=== PATIENT | male | born 1950 | race Caucasian/White ===

== ENCOUNTER 2024-01-21 22:13 | Emergency (ER) | payer MEDICARE, OTHER, MEDICAID ==
[~2024-01-21] VITALS: Ht 167.6 cm; Wt 61.2 kg
[2024-01-21] MEDS ORDERED: BACLOFEN (10 MG) 10 MG TABLET ONE (23:57)
[2024-01-21] MEDS: BACLOFEN (10 MG) 10 MG TABLET PO ONE (23:59)
[2024-01-22 01:17] VITALS: BP 119/78; TEMP 98.5; O2SAT 98
== END 2024-01-22 01:00 ==
LOC: ER 22:27
DX: G25.0 Essential tremor (principal); G30.9 Alzheimer's disease, unspecified; F02.80 Dementia in other diseases classified elsewhere, unspecified severity, without behavioral disturbance, psychotic disturbance, mood disturbance, and anxiety

== ENCOUNTER 2024-06-17 03:26 | Inpatient (IN) | payer MEDICARE, OTHER ==
[~2024-06-17] VITALS: Ht 170.2 cm; Wt 63.0 kg
[2024-06-17] MEDS ORDERED: LORAZEPAM INJ 2 MG/ML VIAL ONE (03:59)
[2024-06-17] MEDS: LORAZEPAM INJ 2 MG/ML VIAL IM ONE (04:06)
[2024-06-17 06:04] LABS: BASOPHILS % (AUTO) 0.3 % (0.0-2.0); EOSINOPHILS # (AUTO) 0.1 K/uL (0.0-0.7); EOSINOPHILS % (AUTO) 0.8 % (0.0-6.0); HEMATOCRIT 33 % (39-51); HEMOGLOBIN 11.2 g/dL (13.5-17.5); LYMPHOCYTES # (AUTO) 1.1 K/uL (0.8-4.8); LYMPHOCYTES % (AUTO) 11.5 % (20.0-44.0); MEAN CORPUSCULAR HEMOGLOBIN 31 PG (26.0-33.0); MEAN CORPUSCULAR HGB CONC 34 g/dl (31.0-36.0); MEAN CORPUSCULAR VOLUME 91 fL (80-96); MONOCYTES # (AUTO) 0.6 K/uL (0.1-1.30); MONOCYTES % (AUTO) 6.3 % (2.0-12.0); NEUTROPHILS # (AUTO) 7.5 K/uL (1.8-8.9); NEUTROPHILS % (AUTO) 81.1 % (43.0-81.0); PLATELET COUNT (AUTO) 208 K/uL (150-450); RED BLOOD CELL COUNT(AUTO) 3.65 MIL/uL (4.5-6.0); RED CELL DISTRIBUTION WIDTH 13.4 % (11.5-15.0); WHITE BLOOD COUNT (AUTO) 9.2 K/uL (4.3-11.0)
[2024-06-17 06:14] LABS: CALCIUM, SERUM 8.7 mg/dL (8.5-10.1); CARBON DIOXIDE 36 mmol/L (21-32); CHLORIDE 105 mmol/L (98-107); CREATININE 1.2 mg/dL (0.6-1.3); GLUCOSE 112 mg/dL (74-106); POTASSIUM 4.3 mmol/L (3.5-5.1); SODIUM SERUM 141 mmol/L (136-145); UREA NITROGEN, BLOOD 19 mg/dL (7-18)
[2024-06-17 06:15] LABS: INR 1.01 (0.91-1.10); PARTIAL THROMBOPLASTIN TIME 27.2 SEC (24.3-34.3); PROTHROMBIN TIME 10.7 SECS (9.2-11.1)
[2024-06-17] MEDS ORDERED: GLUTAMINE PO (07:33)
[2024-06-17] MEDS ORDERED: MULT-225 PO (07:33)
[2024-06-17] MEDS ORDERED: MELA3TAB41 PO (07:33)
[2024-06-17] MEDS ORDERED: CYAN-51 PO (07:33)
[2024-06-17] MEDS ORDERED: OMEG100037 PO (07:33)
[2024-06-17] MEDS ORDERED: BENZ0.5T43 PO (07:33)
[2024-06-17] MEDS ORDERED: AMLO5TAB4 PO (07:33)
[2024-06-17] MEDS ORDERED: PSYL283P40 PO (07:33)
[2024-06-17] MEDS ORDERED: DIVA125T32 PO (07:33)
[2024-06-17] MEDS ORDERED: ACET-868 PO (07:33)
[2024-06-17] MEDS ORDERED: DIME118C TP (07:33)
[2024-06-17] MEDS ORDERED: ACET-2030 PO (07:33)
[2024-06-17] MEDS ORDERED: DOCU250C14 PO (07:33)
[2024-06-17] MEDS ORDERED: LACT20SO4 PO (07:33)
[2024-06-17] MEDS ORDERED: LATA7.5D EACHEYE (07:33)
[2024-06-17] MEDS ORDERED: ASCO-352 PO (07:33)
[2024-06-17] MEDS ORDERED: RISP0.5T5 PO (07:33)
[2024-06-17] MEDS ORDERED: BISA10SU11 RC (07:33)
[2024-06-17] MEDS ORDERED: RISP1TAB7 PO (07:33)
[2024-06-17] MEDS ORDERED: IVER3TAB2 PO (07:33)
[2024-06-17] MEDS ORDERED: EPIN0.3A4 IM (07:33)
[2024-06-17] MEDS ORDERED: MULT-479 GT (07:33)
[2024-06-17] MEDS ORDERED: MAG HYDROX/AL HYDROX/SIMETH 30 ML UDC PO PRN (08:30)
[2024-06-17] MEDS ORDERED: ONDANSETRON HCL/PF 4 MG/2 ML VIAL IVP PRN (08:30)
[2024-06-17] MEDS ORDERED: MAGNESIUM HYDROXIDE 30 ML UDC PO PRN (08:30)
[2024-06-17] MEDS ORDERED: Z GUARD REMEDY 4 OZ OINT TP PRN (08:30)
[2024-06-17] MEDS ORDERED: ZOLPIDEM TARTRATE 5 MG TABLET PO PRN (08:30)
[2024-06-17] MEDS ORDERED: ACETAMINOPHEN 325 MG TABLET PO PRN ×2 (08:30→17:30)
[2024-06-17] MEDS ORDERED: LACTULOSE 10 G/15 ML UDC (PYXIS) PO PRN (09:00)
[2024-06-17] MEDS ORDERED: DIVALPROEX SODIUM 125 MG TABLET.DR PO SCH (09:00)
[2024-06-17] MEDS: risperiDONE 1 MG TABLET PO SCH (10:01)
[2024-06-17] MEDS: BENZTROPINE MESYLATE (1 MG) 1 MG TABLET PO SCH (10:02)
[2024-06-17] MEDS: ENOXAPARIN SODIUM 40 MG/0.4 ML DISP.SYRIN SQ SCH (10:03)
[2024-06-17] MEDS: IV NS 0.9% 1,000 ML IV PRN (10:54)
[2024-06-17] MEDS ORDERED: BISACODYL SUPP (10 MG) 10 MG/SUPP.RECT SUPP.RECT RC PRN (17:30)
[2024-06-17] MEDS ORDERED: ACETAMINOPHEN ES 500 MG TABLET PO PRN (17:30)
[2024-06-17 20:00] VITALS: BP 111/85; TEMP 97.7; O2SAT 95
[2024-06-17] MEDS: risperiDONE 0.25 MG TABLET PO SCH (21:47)
[2024-06-17] MEDS: LATANOPROST EYE DROP 0.005% 2.5 ML BOTTLE EACHEYE SCH (21:56)
[2024-06-18 06:40] LABS: BASOPHILS % (AUTO) 0.3 % (0.0-2.0); HEMATOCRIT 26 % (39-51); HEMOGLOBIN 8.7 g/dL (13.5-17.5); LYMPHOCYTES # (AUTO) 0.7 K/uL (0.8-4.8); LYMPHOCYTES % (AUTO) 8.7 % (20.0-44.0); MEAN CORPUSCULAR HEMOGLOBIN 31 PG (26.0-33.0); MEAN CORPUSCULAR HGB CONC 34 g/dl (31.0-36.0); MEAN CORPUSCULAR VOLUME 91 fL (80-96); MONOCYTES # (AUTO) 0.8 K/uL (0.1-1.30); MONOCYTES % (AUTO) 10.5 % (2.0-12.0); NEUTROPHILS % (AUTO) 80.5 % (43.0-81.0); PLATELET COUNT (AUTO) 178 K/uL (150-450); RED BLOOD CELL COUNT(AUTO) 2.81 MIL/uL (4.5-6.0); RED CELL DISTRIBUTION WIDTH 13.2 % (11.5-15.0); WHITE BLOOD COUNT (AUTO) 7.5 K/uL (4.3-11.0)
[2024-06-18 06:42] LABS: ALANINE AMINOTRANSFERASE 18 U/L (12-78); ALBUMIN 2.3 g/dL (3.4-5.0); ALKALINE PHOSPHATASE 57 U/L (46-116); ASPARTATE AMINOTRANSFERASE 26 U/L (15-37); BILIRUBIN,TOTAL 0.5 mg/dL (0.2-1.0); CALCIUM, SERUM 8.3 mg/dL (8.5-10.1); CARBON DIOXIDE 27 mmol/L (21-32); CHLORIDE 111 mmol/L (98-107); CREATININE 1.1 mg/dL (0.6-1.3); GLUCOSE 108 mg/dL (74-106); PHOSPHORUS 3.3 mg/dL (2.5-4.9); POTASSIUM 3.9 mmol/L (3.5-5.1); SODIUM SERUM 141 mmol/L (136-145); TOTAL PROTEIN, SERUM 5.7 g/dL (6.4-8.2); UREA NITROGEN, BLOOD 23 mg/dL (7-18)
[2024-06-18 07:00] VITALS: BP 124/70; TEMP 98.2; O2SAT 98
[2024-06-18] MEDS: PANTOPRAZOLE 40 MG TABLET.DR PO SCH (08:02)
[2024-06-18] MEDS ORDERED: EPINEPHRINE (1:1000) 1 MG/ML AMPUL IM PRN (08:30)
[2024-06-18] MEDS ORDERED: MULTIVITAMIN/LUTEIN/MINERALS 1 TAB GT SCH (09:00)
[2024-06-18] MEDS: MULTIVITAMINS,THERAGRAN 1 UDTAB TABLET PO SCH (09:00)
[2024-06-18] MEDS: DOCUSATE SODIUM 250 MG CAPSULE PO SCH (09:00)
[2024-06-18] MEDS: AMLODIPINE BESYLATE 5 MG TABLET PO SCH (09:00)
[2024-06-18] MEDS: ASCORBIC ACID 500 MG TABLET PO SCH (09:00)
[2024-06-18] MEDS: CYANOCOBALAMIN 500 MCG TABLET PO SCH (09:00)
[2024-06-18] MEDS: IVERMECTIN 3 MG TABLET PO SCH (09:00)
[2024-06-18] MEDS ORDERED: BUPIVACAINE 0.5 % PF 150 MG/30 ML VIAL ONE (09:02)
[2024-06-18 09:04] LABS: IRON, SERUM 12 ug/dl (50-175); TOTAL IRON BINDING CAPACITY 186 ug/dl (250-450)
[2024-06-18] MEDS ORDERED: FENTANYL PF 100MCG/2ML AMPUL ONE (09:07)
[2024-06-18] MEDS ORDERED: HYDROMORPHONE INJ 2 MG/ML DISP.SYRIN ONE (09:08)
[2024-06-18] MEDS ORDERED: ROCURONIUM BROMIDE 50 MG/5 ML ONE ×2 (09:08)
[2024-06-18 09:17] LABS: FERRITIN 186 ng/mL (8-388)
[2024-06-18 09:27] VITALS: BP 124/70; TEMP 98
[2024-06-18 09:28] VITALS: BP 124/70; TEMP 98
[2024-06-18] MEDS ORDERED: TRANEXAMIC ACID 1,000 MG/10 ML VIAL ONE (10:01)
[2024-06-18] MEDS ORDERED: MORPHINE SULFATE INJ 10 MG/ML DISP.SYRIN IV ONE (13:18)
[2024-06-18] MEDS ORDERED: MORPHINE SULFATE INJ 10 MG/ML DISP.SYRIN IV PRN ×2 (13:30)
[2024-06-18 14:12] LABS: HEMOGLOBIN 11.1 g/dL (13.5-17.5)
[2024-06-18 16:00] VITALS: BP 98/63; TEMP 97.3; O2SAT 97
[2024-06-18] MEDS: CEFAZOLIN 2 GM in IV D5W 100 ML IV SCH (18:13)
[2024-06-18 20:00] VITALS: BP 107/65; TEMP 98.2; O2SAT 94
[2024-06-19 07:21] LABS: BASOPHILS % (AUTO) 0.2 % (0.0-2.0); EOSINOPHILS % (AUTO) 0.1 % (0.0-6.0); HEMATOCRIT 30 % (39-51); HEMOGLOBIN 10.3 g/dL (13.5-17.5); LYMPHOCYTES # (AUTO) 0.8 K/uL (0.8-4.8); LYMPHOCYTES % (AUTO) 7.9 % (20.0-44.0); MEAN CORPUSCULAR HEMOGLOBIN 31 PG (26.0-33.0); MEAN CORPUSCULAR HGB CONC 34 g/dl (31.0-36.0); MEAN CORPUSCULAR VOLUME 90 fL (80-96); MONOCYTES # (AUTO) 1.1 K/uL (0.1-1.30); MONOCYTES % (AUTO) 10.7 % (2.0-12.0); NEUTROPHILS # (AUTO) 8.1 K/uL (1.8-8.9); NEUTROPHILS % (AUTO) 81.1 % (43.0-81.0); PLATELET COUNT (AUTO) 139 K/uL (150-450); RED BLOOD CELL COUNT(AUTO) 3.36 MIL/uL (4.5-6.0); RED CELL DISTRIBUTION WIDTH 14.2 % (11.5-15.0)
[2024-06-19 08:00] VITALS: BP 121/69; TEMP 97.5; O2SAT 95
[2024-06-19 08:35] LABS: ALANINE AMINOTRANSFERASE 19 U/L (12-78); ALBUMIN 1.9 g/dL (3.4-5.0); ALKALINE PHOSPHATASE 49 U/L (46-116); ASPARTATE AMINOTRANSFERASE 76 U/L (15-37); BILIRUBIN,TOTAL 0.5 mg/dL (0.2-1.0); CALCIUM, SERUM 8.1 mg/dL (8.5-10.1); CARBON DIOXIDE 25 mmol/L (21-32); CHLORIDE 114 mmol/L (98-107); GLUCOSE 110 mg/dL (74-106); PHOSPHORUS 3.2 mg/dL (2.5-4.9); POTASSIUM 3.8 mmol/L (3.5-5.1); SODIUM SERUM 146 mmol/L (136-145); TOTAL PROTEIN, SERUM 5.1 g/dL (6.4-8.2); UREA NITROGEN, BLOOD 19 mg/dL (7-18)
[2024-06-19] MEDS: ENOXAPARIN SODIUM 40 MG/0.4 ML DISP.SYRIN SQ SCH (08:57)
[2024-06-19] MEDS ORDERED: Medication Not On Formulary EA (Omega-3/Dha/Epa/Fish Oil (Fish Oil 1,000 mg Softgel) 1,0 PO SCH (09:00)
[2024-06-19] MEDS: SOD FERRIC GLUC 125 MG in IV NS 0.9% 100 ML IV SCH (14:19)
[2024-06-19 16:00] VITALS: BP 121/64; TEMP 98.4; O2SAT 97
[2024-06-19 20:00] VITALS: BP 120/62; TEMP 98.2; O2SAT 99
[2024-06-20 06:33] LABS: BASOPHILS % (AUTO) 0.4 % (0.0-2.0); EOSINOPHILS # (AUTO) 0.1 K/uL (0.0-0.7); EOSINOPHILS % (AUTO) 0.8 % (0.0-6.0); HEMATOCRIT 26 % (39-51); LYMPHOCYTES % (AUTO) 11.2 % (20.0-44.0); MEAN CORPUSCULAR HEMOGLOBIN 31 PG (26.0-33.0); MEAN CORPUSCULAR HGB CONC 35 g/dl (31.0-36.0); MEAN CORPUSCULAR VOLUME 89 fL (80-96); MONOCYTES # (AUTO) 0.8 K/uL (0.1-1.30); MONOCYTES % (AUTO) 8.8 % (2.0-12.0); NEUTROPHILS % (AUTO) 78.8 % (43.0-81.0); PLATELET COUNT (AUTO) 149 K/uL (150-450); RED BLOOD CELL COUNT(AUTO) 2.92 MIL/uL (4.5-6.0); RED CELL DISTRIBUTION WIDTH 14.2 % (11.5-15.0); WHITE BLOOD COUNT (AUTO) 8.8 K/uL (4.3-11.0)
[2024-06-20 07:01] LABS: CALCIUM, SERUM 8.1 mg/dL (8.5-10.1); CARBON DIOXIDE 26 mmol/L (21-32); CHLORIDE 116 mmol/L (98-107); CREATININE 0.8 mg/dL (0.6-1.3); GLUCOSE 96 mg/dL (74-106); MAGNESIUM 2.1 mg/dL (1.8-2.4); PHOSPHORUS 2.5 mg/dL (2.5-4.9); POTASSIUM 3.1 mmol/L (3.5-5.1); SODIUM SERUM 147 mmol/L (136-145); UREA NITROGEN, BLOOD 17 mg/dL (7-18)
[2024-06-20 08:00] VITALS: BP 112/64; TEMP 97.9; O2SAT 96
[2024-06-20] MEDS: POTASSIUM CHLORIDE 20 MEQ TAB.PRT.SR PO SCH (09:29)
[2024-06-20] MEDS: IV 1/2NS 1000 ML 1,000 ML IV PRN (10:48)
[2024-06-20] MEDS ORDERED: PANT40TA49 PO (11:42)
[2024-06-20] MEDS ORDERED: ENOX40DI SQ (11:42)
[2024-06-20 15:32] VITALS: BP 111/70; TEMP 97.6; O2SAT 99
== END 2024-06-20 16:00 | DRG 480 ==
LOC: ER 03:38 → MED 06:08
PROVIDERS: ADMIT Student in an Organized Health Care Education/Training Program; ATTEND Nurse Practitioner Acute Care
PROC: 0QS706Z Reposition Left Upper Femur with Intramedullary Internal Fixation Device, Open Approach (ICD-10-PCS; principal; 2024-06-18)
PROC: 30233N1 Transfusion of Nonautologous Red Blood Cells into Peripheral Vein, Percutaneous Approach (ICD-10-PCS; 2024-06-18)
DX: M80.851A Other osteoporosis with current pathological fracture, right femur, initial encounter for fracture (principal); G93.41 Metabolic encephalopathy; E44.0 Moderate protein-calorie malnutrition; E87.0 Hyperosmolality and hypernatremia; W06.XXXA Fall from bed, initial encounter; G40.909 Epilepsy, unspecified, not intractable, without status epilepticus; F02.80 Dementia in other diseases classified elsewhere, unspecified severity, without behavioral disturbance, psychotic disturbance, mood disturbance, and anxiety; D50.9 Iron deficiency anemia, unspecified; E86.1 Hypovolemia; E88.09 Other disorders of plasma-protein metabolism, not elsewhere classified; Y93.9 Activity, unspecified; Y99.9 Unspecified external cause status; Y92.129 Unspecified place in nursing home as the place of occurrence of the external cause; M16.11 Unilateral primary osteoarthritis, right hip; Z68.21 Body mass index [BMI] 21.0-21.9, adult; G30.9 Alzheimer's disease, unspecified
CPT/HCPCS: 36415; 70450-TC; 71045-TC; 72125-TC; 72192-TC; 73020; 73502; 73564-TC; 80048-TC; 80053-TC; 82728-TC; 83540-TC; 83735-TC; 84100-TC; 84443-TC; 84484-TC; 85025-TC; 85027-TC; 85730-TC; 86850-TC; 87081-TC; 93307-TC; 97110-TC; 97116-TC; 97530-TC; A4217; A4223; A6209; A6253; C1713; G0378; J0690; J1171; J1650; J2060; J2270; J2405; J2704; J2765; J2916; J3010; J3490; J7030; J7040; J7050; J7060; P9016

== ENCOUNTER 2024-07-08 22:08 | Emergency (ER) | payer MEDICARE, OTHER, MEDICAID ==
[~2024-07-08] VITALS: Ht 177.8 cm; Wt 77.1 kg
[~2024-07-08 22:08] MED LIST: ACET-2030 PO; ACET-868 PO; AMLO5TAB4 PO; ASCO-352 PO; BENZ0.5T43 PO; BISA10SU11 RC; CYAN-51 PO; DIME118C TP; DIVA125T32 PO; DOCU250C14 PO; ENOX40DI SQ; GLUTAMINE PO; LACT20SO4 PO; LATA7.5D EACHEYE; MELA3TAB41 PO; MULT-225 PO; MULT-479 GT; OMEG100037 PO; PANT40TA49 PO; PSYL283P40 PO; RISP0.5T5 PO; RISP1TAB7 PO
[2024-07-08 22:21] VITALS: TEMP 98.3
[2024-07-08 23:21] LABS: BASOPHILS % (AUTO) 0.3 % (0.0-2.0); EOSINOPHILS # (AUTO) 0.1 K/uL (0.0-0.7); EOSINOPHILS % (AUTO) 0.4 % (0.0-6.0); HEMATOCRIT 32 % (39-51); HEMOGLOBIN 10.5 g/dL (13.5-17.5); LYMPHOCYTES # (AUTO) 1.7 K/uL (0.8-4.8); LYMPHOCYTES % (AUTO) 12.4 % (20.0-44.0); MEAN CORPUSCULAR HEMOGLOBIN 29 PG (26.0-33.0); MEAN CORPUSCULAR HGB CONC 33 g/dl (31.0-36.0); MEAN CORPUSCULAR VOLUME 90 fL (80-96); MONOCYTES % (AUTO) 7.5 % (2.0-12.0); NEUTROPHILS # (AUTO) 10.9 K/uL (1.8-8.9); NEUTROPHILS % (AUTO) 79.4 % (43.0-81.0); PLATELET COUNT (AUTO) 469 K/uL (150-450); RED BLOOD CELL COUNT(AUTO) 3.57 MIL/uL (4.5-6.0); RED CELL DISTRIBUTION WIDTH 14.6 % (11.5-15.0); WHITE BLOOD COUNT (AUTO) 13.7 K/uL (4.3-11.0)
[2024-07-08 23:58] LABS: CALCIUM, SERUM 9.2 mg/dL (8.5-10.1); CREATININE 1.1 mg/dL (0.6-1.3); POTASSIUM 4.2 mmol/L (3.5-5.1)
[2024-07-09 00:03] LABS: APPEARANCE,URINE CLEAR (CLEAR); BILIRUBIN,URINE NEGATIVE (NEGATIVE); BLOOD, URINE NEGATIVE Ery/uL (NEGATIVE); COLOR,URINE YELLOW (YELLOW); KETONES,URINE TRACE mg/dL (NEGATIVE); LEUKOCYTE ESTERASE ,URINE NEGATIVE (NEGATIVE); NITRITE, URINE NEGATIVE (NEGATIVE); PROTEIN,URINE NEGATIVE (NEGATIVE); UGLUCOSE NEGATIVE (NEGATIVE)
[2024-07-09 00:10] LABS: ALBUMIN 2.1 g/dL (3.4-5.0); BILIRUBIN,TOTAL 0.4 mg/dL (0.2-1.0); TOTAL PROTEIN, SERUM 6.6 g/dL (6.4-8.2)
[2024-07-09 01:31] VITALS: BP 102/65; O2SAT 97
== END 2024-07-09 03:05 ==
LOC: ER 22:24
DX: R50.9 Fever, unspecified (principal); F02.80 Dementia in other diseases classified elsewhere, unspecified severity, without behavioral disturbance, psychotic disturbance, mood disturbance, and anxiety; G30.9 Alzheimer's disease, unspecified; I10 Essential (primary) hypertension; Z79.899 Other long term (current) drug therapy; Z20.822 Contact with and (suspected) exposure to COVID-19
CPT/HCPCS: 36415; 71045-TC; 80053-TC; 83605-TC; 83880; 84484-TC; 85025-TC; 87040-TC

== ENCOUNTER 2024-08-03 20:28 | Inpatient (IN) | payer MEDICARE, OTHER ==
[~2024-08-03] VITALS: Ht 170.2 cm; Wt 57.2 kg
[~2024-08-03 20:28] MED LIST changes: +ACET-2030 GT; -ACET-2030 PO; +ACET-868 GT; -ACET-868 PO; +AMLO5TAB4 GT; -AMLO5TAB4 PO; +ASCO-352 GT; -ASCO-352 PO; +BENZ0.5T43 GT; -BENZ0.5T43 PO; +CYAN-51 GT; -CYAN-51 PO; +DIVA125T32 GT; -DIVA125T32 PO; +LACT20SO4 GT; -LACT20SO4 PO; +MELA3TAB41 GT; -MELA3TAB41 PO; +MULT-225 GT; -MULT-225 PO; +OMEG100037 GT; -OMEG100037 PO; +PSYL283P40 GT; -PSYL283P40 PO
[2024-08-03] MEDS: CEFEPIME 1 GM in IV D5W 50 ML IV ONE (21:30)
[2024-08-03] MEDS: IV NS 0.9% 1,000 ML BAG IV ONE (21:52)
[2024-08-03] MEDS: VANCOMYCIN 1 GM in IV D5W 250 ML IV ONE (22:00)
[2024-08-03 22:08] LABS: BASOPHILS % (AUTO) 0.6 % (0.0-2.0); EOSINOPHILS # (AUTO) 0.2 K/uL (0.0-0.7); EOSINOPHILS % (AUTO) 3.2 % (0.0-6.0); HEMATOCRIT 28 % (39-51); LYMPHOCYTES # (AUTO) 1.5 K/uL (0.8-4.8); LYMPHOCYTES % (AUTO) 22.9 % (20.0-44.0); MEAN CORPUSCULAR HEMOGLOBIN 28 PG (26.0-33.0); MEAN CORPUSCULAR HGB CONC 32 g/dl (31.0-36.0); MEAN CORPUSCULAR VOLUME 87 fL (80-96); MONOCYTES # (AUTO) 0.3 K/uL (0.1-1.30); MONOCYTES % (AUTO) 4.7 % (2.0-12.0); NEUTROPHILS # (AUTO) 4.5 K/uL (1.8-8.9); NEUTROPHILS % (AUTO) 68.6 % (43.0-81.0); PLATELET COUNT (AUTO) 435 K/uL (150-450); RED BLOOD CELL COUNT(AUTO) 3.23 MIL/uL (4.5-6.0); WHITE BLOOD COUNT (AUTO) 6.5 K/uL (4.3-11.0)
[2024-08-03 22:22] LABS: BILIRUBIN,DIRECT 0.1 mg/dL (0.0-0.2); BILIRUBIN,TOTAL 0.3 mg/dL (0.2-1.0); CALCIUM, SERUM 8.5 mg/dL (8.5-10.1); POTASSIUM 3.7 mmol/L (3.5-5.1); TOTAL PROTEIN, SERUM 6.5 g/dL (6.4-8.2)
[2024-08-03 22:25] LABS: LACTIC ACID 1.6 mmol/L (0.4-2.0)
[2024-08-03] MEDS ORDERED: CEFEPIME 1 GM VIAL ONE (22:31)
[2024-08-03] MEDS ORDERED: VANCOMYCIN 1 GM /D5W 250 ML PB IV ONE (22:31)
[2024-08-03 22:38] LABS: ALBUMIN 1.3 g/dL (3.4-5.0)
[2024-08-03 22:48] LABS: INR 1.2 (0.91-1.10); PARTIAL THROMBOPLASTIN TIME 33.5 SEC (24.3-34.3); PROTHROMBIN TIME 12.6 SECS (9.2-11.1)
[2024-08-03] MEDS ORDERED: ONDANSETRON HCL/PF 4 MG/2 ML VIAL IVP PRN (23:00)
[2024-08-03] MEDS ORDERED: Z GUARD REMEDY 4 OZ OINT TP PRN (23:00)
[2024-08-03] MEDS ORDERED: MAGNESIUM HYDROXIDE 30 ML UDC PO PRN (23:00)
[2024-08-03] MEDS ORDERED: ACETAMINOPHEN 325 MG TABLET PO PRN (23:00)
[2024-08-03] MEDS ORDERED: MAG HYDROX/AL HYDROX/SIMETH 30 ML UDC PO PRN (23:00)
[2024-08-03] MEDS ORDERED: ENOXAPARIN SODIUM 40 MG/0.4 ML DISP.SYRIN SQ ONE (23:52)
[2024-08-03] MEDS ORDERED: ALBUMIN 25% 100 ML IV ONE (23:52)
[2024-08-03] MEDS: ALBUMIN 25% 12.5 GM/50 ML BOTTLE IV ONE (23:53)
[2024-08-03] MEDS: ENOXAPARIN SODIUM 40 MG/0.4 ML DISP.SYRIN SQ SCH (23:53)
[2024-08-04] MEDS ORDERED: ACET-868 GT (08:06)
[2024-08-04] MEDS ORDERED: AMOX1TAB16 PO (08:06)
[2024-08-04] MEDS ORDERED: PANT40TA2 GT (08:06)
[2024-08-04] MEDS ORDERED: MAGN200T5 GT (08:06)
[2024-08-04] MEDS ORDERED: CALC-1321 GT (08:06)
[2024-08-04] MEDS ORDERED: GLUT360P3 GT (08:06)
[2024-08-04] MEDS ORDERED: NA P133E RC (08:06)
[2024-08-04] MEDS ORDERED: DOXY-326 PO (08:06)
[2024-08-04] MEDS ORDERED: ZINC50TA69 GT (08:06)
[2024-08-04] MEDS ORDERED: MAGN400O6 GT (08:06)
[2024-08-04] MEDS ORDERED: DOCU100T2 GT (08:06)
[2024-08-04] MEDS ORDERED: HYDR-4209 GT (08:06)
[2024-08-04] MEDS ORDERED: AMIN30LI66 GT (08:06)
[2024-08-04 08:47] LABS: BASOPHILS % (AUTO) 0.7 % (0.0-2.0); EOSINOPHILS # (AUTO) 0.2 K/uL (0.0-0.7); EOSINOPHILS % (AUTO) 3.1 % (0.0-6.0); HEMATOCRIT 26 % (39-51); HEMOGLOBIN 8.5 g/dL (13.5-17.5); LYMPHOCYTES # (AUTO) 1.7 K/uL (0.8-4.8); LYMPHOCYTES % (AUTO) 24.5 % (20.0-44.0); MEAN CORPUSCULAR HEMOGLOBIN 29 PG (26.0-33.0); MEAN CORPUSCULAR HGB CONC 32 g/dl (31.0-36.0); MEAN CORPUSCULAR VOLUME 89 fL (80-96); MONOCYTES # (AUTO) 0.4 K/uL (0.1-1.30); MONOCYTES % (AUTO) 5.5 % (2.0-12.0); NEUTROPHILS # (AUTO) 4.6 K/uL (1.8-8.9); NEUTROPHILS % (AUTO) 66.2 % (43.0-81.0); PLATELET COUNT (AUTO) 366 K/uL (150-450); RED BLOOD CELL COUNT(AUTO) 2.96 MIL/uL (4.5-6.0); RED CELL DISTRIBUTION WIDTH 15.2 % (11.5-15.0)
[2024-08-04 08:55] LABS: ALBUMIN 1.8 g/dL (3.4-5.0); CALCIUM, SERUM 8.7 mg/dL (8.5-10.1); CREATININE 0.8 mg/dL (0.6-1.3); PHOSPHORUS 3.6 mg/dL (2.5-4.9)
[2024-08-04 09:18] LABS: ERYTHROCYTE SEDIMENTATION RATE 54 MM/HR (0-20)
[2024-08-04] MEDS: VANCOMYCIN 750 MG in IV D5W 250 ML IV SCH (10:00)
[2024-08-04] MEDS: CEFEPIME 2 GM in IV D5W 100 ML IV SCH (10:19)
[2024-08-04] MEDS: DAKINS QUARTER STRENGTH (0.125%) 480 ML BOTTLE TOP SCH (10:30)
[2024-08-04 20:00] VITALS: BP 125/71; TEMP 98.1; O2SAT 97
[2024-08-04 20:13] VITALS: BP 135/88; TEMP 97.6; O2SAT 98
[2024-08-05 07:48] LABS: CALCIUM, SERUM 9.4 mg/dL (8.5-10.1); CREATININE 0.9 mg/dL (0.6-1.3); POTASSIUM 3.1 mmol/L (3.5-5.1)
[2024-08-05 08:00] VITALS: BP 151/96; TEMP 98.1; O2SAT 99
[2024-08-05 10:00] VITALS: BP 151/96; TEMP 98.1; O2SAT 99
[2024-08-05] MEDS: POTASSIUM CHLORIDE 20 MEQ TAB.PRT.SR PO SCH (10:00)
[2024-08-05] MEDS: ENSURE ENLIVE 237 ML LIQUID (VANILLA) PO SCH (13:00)
[2024-08-05] MEDS: POTASSIUM CHLORIDE 20 MEQ POWDER PACKET PO ONE ×2 (13:39→16:39)
[2024-08-05] MEDS ORDERED: POTASSIUM CHLORIDE 20 MEQ POWDER PACKET PO ONE (14:00)
[2024-08-05 20:00] VITALS: BP 125/83; TEMP 97.7; O2SAT 96
[2024-08-05] MEDS: VANCOMYCIN 1 GM in IV D5W 250ml IV SCH (22:26)
[2024-08-06 07:47] LABS: CALCIUM, SERUM 9.5 mg/dL (8.5-10.1); CREATININE 0.9 mg/dL (0.6-1.3); POTASSIUM 4.4 mmol/L (3.5-5.1)
[2024-08-06 08:00] VITALS: BP 111/82; TEMP 97.5
[2024-08-06] MEDS ORDERED: BISACODYL SUPP (10 MG) 10 MG/SUPP.RECT SUPP.RECT RC PRN (09:00)
[2024-08-06] MEDS ORDERED: LACTULOSE 10 G/15 ML UDC (PYXIS) PO PRN (09:00)
[2024-08-06] MEDS ORDERED: HOME MED MISCELLANEOUS XX SCH ×2 (09:00)
[2024-08-06] MEDS ORDERED: ACETAMINOPHEN 325 MG TABLET PO PRN (09:00)
[2024-08-06] MEDS ORDERED: HYDROCODONE/APAP 5/325MG TABLET PO PRN (09:00)
[2024-08-06] MEDS ORDERED: DIVALPROEX SODIUM 125 MG TABLET.DR PO SCH (09:00)
[2024-08-06] MEDS ORDERED: NA PHOS,M-B/NA PHOS,DI-BA 1 EA ENEMA RC PRN (09:00)
[2024-08-06] MEDS ORDERED: MAGNESIUM HYDROXIDE 30 ML UDC PO PRN (09:00)
[2024-08-06] MEDS ORDERED: ACETAMINOPHEN ES 500 MG TABLET PO PRN (09:00)
[2024-08-06] MEDS: AMLODIPINE BESYLATE 5 MG TABLET PO SCH (09:52)
[2024-08-06] MEDS: MULTIVITAMINS,THERAGRAN 1 UDTAB TABLET PO SCH (09:53)
[2024-08-06] MEDS: CYANOCOBALAMIN 500 MCG TABLET PO SCH (09:53)
[2024-08-06] MEDS: DOCUSATE SODIUM 100 MG CAPSULE PO SCH (09:53)
[2024-08-06] MEDS: BENZTROPINE MESYLATE (1 MG) 1 MG TABLET PO SCH (09:53)
[2024-08-06] MEDS: CALCIUM CARB 600MG /VIT D 1 EACH TABLET PO SCH (09:53)
[2024-08-06] MEDS: ASCORBIC ACID 500 MG TABLET PO SCH (09:53)
[2024-08-06] MEDS: MAGNESIUM OXIDE 400 MG TABLET PO SCH (09:53)
[2024-08-06] MEDS: PROSOURCE / PROSTAT (PYXIS) 30 ML UDC PO SCH (12:28)
[2024-08-06 16:00] VITALS: BP 110/80; TEMP 99.5
[2024-08-06 20:00] VITALS: BP 94/74; TEMP 99; O2SAT 93
[2024-08-06] MEDS: LATANOPROST EYE DROP 0.005% 2.5 ML BOTTLE EACHEYE SCH (22:42)
[2024-08-07] MEDS: VANCOMYCIN 1 GM in IV D5W 250ml IV SCH (00:23)
[2024-08-07 07:48] LABS: CALCIUM, SERUM 9.4 mg/dL (8.5-10.1); CREATININE 1.2 mg/dL (0.6-1.3); POTASSIUM 4.2 mmol/L (3.5-5.1)
[2024-08-07 08:00] VITALS: BP 101/69; TEMP 98.1; O2SAT 99
[2024-08-07] MEDS ORDERED: CALCIUM CARB 600MG /VIT D 1 EACH TABLET PO SCH (10:00)
[2024-08-07 20:00] VITALS: BP 106/59; TEMP 97.9; O2SAT 97
[2024-08-08 06:59] LABS: CALCIUM, SERUM 9.5 mg/dL (8.5-10.1); CREATININE 0.9 mg/dL (0.6-1.3); POTASSIUM 3.7 mmol/L (3.5-5.1)
[2024-08-08 08:00] VITALS: BP 110/76; TEMP 97.3; O2SAT 77
[2024-08-08 16:04] VITALS: BP 97/62; TEMP 98.2; O2SAT 94
[2024-08-08 20:15] VITALS: BP 92/50; TEMP 99; O2SAT 90
[2024-08-09 07:00] VITALS: BP 101/61; TEMP 97.7; O2SAT 98
[2024-08-09 08:05] LABS: CALCIUM, SERUM 10.7 mg/dL (8.5-10.1); CREATININE 1.7 mg/dL (0.6-1.3); POTASSIUM 4.5 mmol/L (3.5-5.1)
[2024-08-09 10:43] LABS: BASOPHILS # (AUTO) 0.1 K/uL (0.0-0.2); BASOPHILS % (AUTO) 0.4 % (0.0-2.0); EOSINOPHILS % (AUTO) 0.1 % (0.0-6.0); HEMATOCRIT 32 % (39-51); HEMOGLOBIN 9.6 g/dL (13.5-17.5); LYMPHOCYTES # (AUTO) 2.5 K/uL (0.8-4.8); LYMPHOCYTES % (AUTO) 11.8 % (20.0-44.0); MEAN CORPUSCULAR HEMOGLOBIN 27 PG (26.0-33.0); MEAN CORPUSCULAR HGB CONC 30 g/dl (31.0-36.0); MEAN CORPUSCULAR VOLUME 91 fL (80-96); MONOCYTES # (AUTO) 1.2 K/uL (0.1-1.30); MONOCYTES % (AUTO) 5.6 % (2.0-12.0); NEUTROPHILS # (AUTO) 17.7 K/uL (1.8-8.9); NEUTROPHILS % (AUTO) 82.1 % (43.0-81.0); PLATELET COUNT (AUTO) 355 K/uL (150-450); RED BLOOD CELL COUNT(AUTO) 3.51 MIL/uL (4.5-6.0); WHITE BLOOD COUNT (AUTO) 21.6 K/uL (4.3-11.0)
[2024-08-09 11:10] LABS: ANISOCYTOSIS 1+; BAND % (MANUAL) 1 % (0.0-5.0); LYMPHOCYTES % (MANUAL) 9 % (16-48); MONOCYTES % (MANUAL) 4 % (0-11.0); NEUTROPHILS % (MANUAL) 86 (42-76); PLATELET ESTIMATE ADEQUATE
[2024-08-09 16:00] VITALS: BP 82/48; TEMP 97.9; O2SAT 96
[2024-08-09] MEDS: IV NS 0.9% 500 ML IV ONE (17:42)
[2024-08-09 20:00] VITALS: BP 122/69; TEMP 97.3; O2SAT 93
[2024-08-09] MEDS: IV NS 0.9% 1,000 ML IV PRN (20:17)
[2024-08-10] VITALS (8 sets, daily range): BP systolic 84–131; BP diastolic 52–95; TEMP 97–98.2; O2SAT 96–100
[2024-08-10 06:51] LABS: BASOPHILS % (AUTO) 0.3 % (0.0-2.0); EOSINOPHILS # (AUTO) 0.3 K/uL (0.0-0.7); EOSINOPHILS % (AUTO) 2.4 % (0.0-6.0); HEMATOCRIT 25 % (39-51); HEMOGLOBIN 8.2 g/dL (13.5-17.5); LYMPHOCYTES # (AUTO) 2.4 K/uL (0.8-4.8); LYMPHOCYTES % (AUTO) 20.2 % (20.0-44.0); MEAN CORPUSCULAR HEMOGLOBIN 28 PG (26.0-33.0); MEAN CORPUSCULAR HGB CONC 32 g/dl (31.0-36.0); MEAN CORPUSCULAR VOLUME 87 fL (80-96); MONOCYTES # (AUTO) 0.7 K/uL (0.1-1.30); MONOCYTES % (AUTO) 5.5 % (2.0-12.0); NEUTROPHILS # (AUTO) 8.5 K/uL (1.8-8.9); NEUTROPHILS % (AUTO) 71.6 % (43.0-81.0); PLATELET COUNT (AUTO) 340 K/uL (150-450); RED BLOOD CELL COUNT(AUTO) 2.91 MIL/uL (4.5-6.0); RED CELL DISTRIBUTION WIDTH 16.8 % (11.5-15.0); WHITE BLOOD COUNT (AUTO) 11.8 K/uL (4.3-11.0)
[2024-08-10 07:17] LABS: INR 1.16 (0.91-1.10); PARTIAL THROMBOPLASTIN TIME 37.6 SEC (24.3-34.3); PROTHROMBIN TIME 12.2 SECS (9.2-11.1)
[2024-08-10 09:33] LABS: CALCIUM, SERUM 9.9 mg/dL (8.5-10.1); CREATININE 1.2 mg/dL (0.6-1.3); MAGNESIUM 2.2 mg/dL (1.8-2.4); PHOSPHORUS 3.2 mg/dL (2.5-4.9); POTASSIUM 3.8 mmol/L (3.5-5.1)
[2024-08-10] MEDS: JEVITY 1.2 CAL 1,000 ML BOTTLE GT PRN (14:25)
[2024-08-10] MEDS: SOD FERRIC GLUC 125 MG in IV NS 0.9% 100 ML IV SCH (15:42)
[2024-08-10] MEDS ORDERED: WATER FOR INJECTION,STERILE 10 ML ONE (21:21)
[2024-08-10] MEDS: OLANZAPINE 10 MG VIAL IM ONE ×2 (23:20→23:26)
[2024-08-11 00:18] VITALS: BP 123/94; TEMP 97; O2SAT 99
[2024-08-11 03:51] VITALS: BP 117/67; TEMP 97; O2SAT 100
[2024-08-11 04:17] VITALS: BP 117/67; TEMP 97; O2SAT 100
[2024-08-11 07:17] LABS: BASOPHILS % (AUTO) 0.3 % (0.0-2.0); EOSINOPHILS # (AUTO) 0.2 K/uL (0.0-0.7); EOSINOPHILS % (AUTO) 1.8 % (0.0-6.0); HEMATOCRIT 25 % (39-51); HEMOGLOBIN 8.1 g/dL (13.5-17.5); LYMPHOCYTES # (AUTO) 1.3 K/uL (0.8-4.8); LYMPHOCYTES % (AUTO) 15.9 % (20.0-44.0); MEAN CORPUSCULAR HEMOGLOBIN 29 PG (26.0-33.0); MEAN CORPUSCULAR HGB CONC 32 g/dl (31.0-36.0); MEAN CORPUSCULAR VOLUME 89 fL (80-96); MONOCYTES # (AUTO) 0.6 K/uL (0.1-1.30); MONOCYTES % (AUTO) 6.6 % (2.0-12.0); NEUTROPHILS # (AUTO) 6.3 K/uL (1.8-8.9); NEUTROPHILS % (AUTO) 75.4 % (43.0-81.0); PLATELET COUNT (AUTO) 327 K/uL (150-450); RED BLOOD CELL COUNT(AUTO) 2.86 MIL/uL (4.5-6.0); RED CELL DISTRIBUTION WIDTH 17.1 % (11.5-15.0); WHITE BLOOD COUNT (AUTO) 8.4 K/uL (4.3-11.0)
[2024-08-11 07:30] VITALS: BP 113/71; TEMP 97.9; O2SAT 100
[2024-08-11 07:50] LABS: CALCIUM, SERUM 9.3 mg/dL (8.5-10.1); CREATININE 0.9 mg/dL (0.6-1.3); MAGNESIUM 2.2 mg/dL (1.8-2.4); PHOSPHORUS 2.9 mg/dL (2.5-4.9); POTASSIUM 3.1 mmol/L (3.5-5.1)
[2024-08-11] MEDS: POTASSIUM CHLORIDE 20 MEQ POWDER PACKET NG SCH (10:54)
[2024-08-11] MEDS: VANCOMYCIN 750 MG in IV D5W 250 ML IV SCH (13:12)
[2024-08-11 16:00] VITALS: BP 98/62; TEMP 97.5; O2SAT 100
[2024-08-11] MEDS ORDERED: VANCOMYCIN 1 GM in IV D5W 250ml IV SCH (16:00)
[2024-08-11 20:00] VITALS: BP 138/70; TEMP 98.1; O2SAT 98
[2024-08-12 06:27] LABS: BASOPHILS % (AUTO) 0.3 % (0.0-2.0); EOSINOPHILS # (AUTO) 0.3 K/uL (0.0-0.7); EOSINOPHILS % (AUTO) 2.8 % (0.0-6.0); HEMATOCRIT 27 % (39-51); HEMOGLOBIN 8.9 g/dL (13.5-17.5); LYMPHOCYTES # (AUTO) 1.8 K/uL (0.8-4.8); LYMPHOCYTES % (AUTO) 17.5 % (20.0-44.0); MEAN CORPUSCULAR HEMOGLOBIN 29 PG (26.0-33.0); MEAN CORPUSCULAR HGB CONC 32 g/dl (31.0-36.0); MEAN CORPUSCULAR VOLUME 89 fL (80-96); MONOCYTES # (AUTO) 0.8 K/uL (0.1-1.30); MONOCYTES % (AUTO) 7.5 % (2.0-12.0); NEUTROPHILS # (AUTO) 7.3 K/uL (1.8-8.9); NEUTROPHILS % (AUTO) 71.9 % (43.0-81.0); PLATELET COUNT (AUTO) 432 K/uL (150-450); RED BLOOD CELL COUNT(AUTO) 3.09 MIL/uL (4.5-6.0); RED CELL DISTRIBUTION WIDTH 16.9 % (11.5-15.0); WHITE BLOOD COUNT (AUTO) 10.2 K/uL (4.3-11.0)
[2024-08-12 06:41] LABS: CALCIUM, SERUM 9.9 mg/dL (8.5-10.1); CREATININE 0.9 mg/dL (0.6-1.3); MAGNESIUM 2.2 mg/dL (1.8-2.4); PHOSPHORUS 2.9 mg/dL (2.5-4.9); POTASSIUM 4.4 mmol/L (3.5-5.1)
[2024-08-12 06:49] LABS: INR 1.1 (0.91-1.10); PROTHROMBIN TIME 11.6 SECS (9.2-11.1)
[2024-08-12 07:00] VITALS: BP 151/99; TEMP 97.7; O2SAT 100
[2024-08-12] MEDS ORDERED: ANESTHESIA TRAY IN PYXIS 1 EA TRAY MC ONE (12:38)
[2024-08-12 16:00] VITALS: BP 139/72; TEMP 97.5; O2SAT 100
[2024-08-12 20:00] VITALS: BP 108/69; TEMP 97.7; O2SAT 100
[2024-08-13 07:39] LABS: BASOPHILS % (AUTO) 0.3 % (0.0-2.0); EOSINOPHILS # (AUTO) 0.2 K/uL (0.0-0.7); EOSINOPHILS % (AUTO) 1.4 % (0.0-6.0); HEMATOCRIT 28 % (39-51); HEMOGLOBIN 8.7 g/dL (13.5-17.5); LYMPHOCYTES # (AUTO) 1.6 K/uL (0.8-4.8); LYMPHOCYTES % (AUTO) 11.7 % (20.0-44.0); MEAN CORPUSCULAR HEMOGLOBIN 28 PG (26.0-33.0); MEAN CORPUSCULAR HGB CONC 31 g/dl (31.0-36.0); MEAN CORPUSCULAR VOLUME 88 fL (80-96); MONOCYTES # (AUTO) 0.7 K/uL (0.1-1.30); MONOCYTES % (AUTO) 5.3 % (2.0-12.0); NEUTROPHILS # (AUTO) 10.9 K/uL (1.8-8.9); NEUTROPHILS % (AUTO) 81.3 % (43.0-81.0); PLATELET COUNT (AUTO) 386 K/uL (150-450); RED BLOOD CELL COUNT(AUTO) 3.14 MIL/uL (4.5-6.0); WHITE BLOOD COUNT (AUTO) 13.4 K/uL (4.3-11.0)
[2024-08-13 07:44] LABS: CALCIUM, SERUM 9.7 mg/dL (8.5-10.1); CREATININE 0.9 mg/dL (0.6-1.3); MAGNESIUM 1.9 mg/dL (1.8-2.4); PHOSPHORUS 2.9 mg/dL (2.5-4.9); POTASSIUM 4.2 mmol/L (3.5-5.1)
[2024-08-13 08:00] VITALS: BP 98/56; TEMP 97.9; O2SAT 94
[2024-08-13] MEDS: IV D5W 1,000 ML IV SCH (10:46)
[2024-08-13] MEDS: JEVITY 1.2 CAL 1,000 ML BOTTLE GT PRN (13:08)
[2024-08-13 16:00] VITALS: BP 138/91; TEMP 97.5; O2SAT 98
[2024-08-13] MEDS ORDERED: AMOX-430 PO (16:50)
[2024-08-13] MEDS ORDERED: DIVALPROEX SODIUM 500 MG TABLET.DR PO SCH (17:00)
[2024-08-13] MEDS: DIVALPROEX SODIUM 125 MG CAP.SPRINK PO SCH (17:16)
== END 2024-08-13 18:35 | DRG 539 ==
LOC: ER 20:37 → TRANSITION 08-04 03:01 → MED 08-04 18:22 → TELE 08-09 18:23 → MED 08-11 17:57
PROVIDERS: ADMIT Nurse Practitioner Family; ATTEND Nurse Practitioner Acute Care
PROC: 0DH63UZ Insertion of Feeding Device into Stomach, Percutaneous Approach (ICD-10-PCS; principal; 2024-08-12)
DX: M86.8X7 Other osteomyelitis, ankle and foot (principal); E43 Unspecified severe protein-calorie malnutrition; N17.0 Acute kidney failure with tubular necrosis; I96 Gangrene, not elsewhere classified; D68.59 Other primary thrombophilia; R64 Cachexia; Z68.1 Body mass index [BMI] 19.9 or less, adult; E87.0 Hyperosmolality and hypernatremia; G93.49 Other encephalopathy; E78.5 Hyperlipidemia, unspecified; D50.9 Iron deficiency anemia, unspecified; E88.09 Other disorders of plasma-protein metabolism, not elsewhere classified; I10 Essential (primary) hypertension; K21.9 Gastro-esophageal reflux disease without esophagitis; E86.9 Volume depletion, unspecified; R62.7 Adult failure to thrive; Z74.01 Bed confinement status; F39 Unspecified mood [affective] disorder; F03.90 Unspecified dementia, unspecified severity, without behavioral disturbance, psychotic disturbance, mood disturbance, and anxiety; M89.8X9 Other specified disorders of bone, unspecified site; R13.10 Dysphagia, unspecified; Z91.81 History of falling; M24.574 Contracture, right foot; M24.575 Contracture, left foot; Z74.09 Other reduced mobility; K29.70 Gastritis, unspecified, without bleeding; M16.11 Unilateral primary osteoarthritis, right hip
CPT/HCPCS: 36415; 43246; 71045-TC; 73630-TC; 80048-TC; 80076-TC; 80202-TC; 82040-TC; 83605-TC; 83735-TC; 84100-TC; 85025-TC; 85610-TC; 85652-TC; 85730-TC; 86140-TC; 86850-TC; 87040-TC; 87081-TC; 87086-TC; 92526; 92611-TC; A4223; A6253; A6403; G0378; J0692; J1650; J2704; J2916; J3370; J3371; J3490; J7030; J7040; J7060; J7070; P9047

== ENCOUNTER 2024-08-18 08:45 | Inpatient (IN) | payer MEDICARE, OTHER ==
[~2024-08-18] VITALS: Ht 170.2 cm; Wt 54.1 kg
[~2024-08-18 08:45] MED LIST changes: +AMIN30LI66 GT; +AMOX-430 PO; +CALC-1321 GT; -DIME118C TP; +DOCU100T2 GT; -DOCU250C14 PO; -ENOX40DI SQ; +GLUT360P3 GT; -GLUTAMINE PO; +HYDR-4209 GT; +MAGN200T5 GT; +MAGN400O6 GT; -MULT-479 GT; +NA P133E RC; +PANT40TA2 GT; -PANT40TA49 PO; -RISP0.5T5 PO; -RISP1TAB7 PO; +ZINC50TA69 GT
[2024-08-18] MEDS: IV NS 0.9% 1,000 ML BAG IV ONE (09:34)
[2024-08-18] MEDS: CEFEPIME 1 GM in IV D5W 50 ML IV ONE (09:49)
[2024-08-18 09:56] LABS: BASOPHILS % (AUTO) 0.3 % (0.0-2.0); EOSINOPHILS # (AUTO) 0.3 K/uL (0.0-0.7); EOSINOPHILS % (AUTO) 1.8 % (0.0-6.0); HEMATOCRIT 30 % (39-51); HEMOGLOBIN 9.2 g/dL (13.5-17.5); LYMPHOCYTES # (AUTO) 1.5 K/uL (0.8-4.8); LYMPHOCYTES % (AUTO) 10.4 % (20.0-44.0); MEAN CORPUSCULAR HEMOGLOBIN 28 PG (26.0-33.0); MEAN CORPUSCULAR HGB CONC 31 g/dl (31.0-36.0); MEAN CORPUSCULAR VOLUME 88 fL (80-96); MONOCYTES # (AUTO) 0.5 K/uL (0.1-1.30); MONOCYTES % (AUTO) 3.4 % (2.0-12.0); NEUTROPHILS # (AUTO) 11.8 K/uL (1.8-8.9); NEUTROPHILS % (AUTO) 84.1 % (43.0-81.0); PLATELET COUNT (AUTO) 456 K/uL (150-450); RED BLOOD CELL COUNT(AUTO) 3.36 MIL/uL (4.5-6.0); RED CELL DISTRIBUTION WIDTH 19.3 % (11.5-15.0)
[2024-08-18] MEDS ORDERED: AMOX-430 GT (09:56)
[2024-08-18] MEDS ORDERED: LACT-209 GT (09:56)
[2024-08-18 10:10] LABS: CALCIUM, SERUM 9.6 mg/dL (8.5-10.1); CARBON DIOXIDE 33 mmol/L (21-32); CHLORIDE 113 mmol/L (98-107); CREATININE 0.9 mg/dL (0.6-1.3); GLUCOSE 102 mg/dL (74-106); INR 1.08 (0.91-1.10); PARTIAL THROMBOPLASTIN TIME 29.6 SEC (24.3-34.3); POTASSIUM 4.4 mmol/L (3.5-5.1); PROTHROMBIN TIME 11.4 SECS (9.2-11.1); SODIUM SERUM 150 mmol/L (136-145); UREA NITROGEN, BLOOD 32 mg/dL (7-18)
[2024-08-18] MEDS: VANCOMYCIN 1 GM in IV D5W 250 ML IV ONE (10:13)
[2024-08-18 10:17] LABS: ALANINE AMINOTRANSFERASE 54 U/L (12-78); ALKALINE PHOSPHATASE 113 U/L (46-116); ASPARTATE AMINOTRANSFERASE 70 U/L (15-37); BILIRUBIN,DIRECT 0.1 mg/dL (0.0-0.2); BILIRUBIN,TOTAL 0.2 mg/dL (0.2-1.0); TOTAL PROTEIN, SERUM 6.5 g/dL (6.4-8.2)
[2024-08-18 10:24] LABS: ALBUMIN 1.3 g/dL (3.4-5.0)
[2024-08-18] MEDS: CEFTRIAXONE 2 G in IV D5W 100 ML IV SCH (11:56)
[2024-08-18] MEDS ORDERED: DIVALPROEX SODIUM 125 MG TABLET.DR PO SCH (12:30)
[2024-08-18] MEDS ORDERED: MAGNESIUM HYDROXIDE 30 ML UDC PO PRN (12:30)
[2024-08-18] MEDS ORDERED: Z GUARD REMEDY 4 OZ OINT TP PRN (12:30)
[2024-08-18] MEDS ORDERED: HYDROCODONE/APAP 5/325MG TABLET GT PRN (12:30)
[2024-08-18] MEDS ORDERED: NA PHOS,M-B/NA PHOS,DI-BA 1 EA ENEMA RC PRN (12:30)
[2024-08-18] MEDS ORDERED: MAGNESIUM HYDROXIDE 30 ML UDC GT PRN (12:30)
[2024-08-18] MEDS ORDERED: BISACODYL SUPP (10 MG) 10 MG/SUPP.RECT SUPP.RECT RC PRN (12:30)
[2024-08-18] MEDS ORDERED: ACETAMINOPHEN 325 MG TABLET PO PRN (12:30)
[2024-08-18] MEDS ORDERED: ONDANSETRON HCL/PF 4 MG/2 ML VIAL IVP PRN (12:30)
[2024-08-18] MEDS ORDERED: MAG HYDROX/AL HYDROX/SIMETH 30 ML UDC PO PRN (12:30)
[2024-08-18] MEDS ORDERED: LACTULOSE 10 G/15 ML UDC (PYXIS) GT PRN (13:00)
[2024-08-18] MEDS ORDERED: METRONIDAZOLE 500 MG TABLET ONE (14:21)
[2024-08-18] MEDS: BENZTROPINE MESYLATE (1 MG) 1 MG TABLET GT SCH (16:41)
[2024-08-18] MEDS: METRONIDAZOLE 500 MG TABLET PO SCH (16:41)
[2024-08-18 16:50] VITALS: BP 106/63; TEMP 98.2; O2SAT 95
[2024-08-18 17:00] VITALS: BP 125/69; TEMP 98.6; O2SAT 95
[2024-08-18] MEDS ORDERED: GLUTAMINE 15 GM GT SCH (17:00)
[2024-08-18] MEDS: AMLODIPINE BESYLATE 5 MG TABLET GT SCH (17:01)
[2024-08-18] MEDS: JEVITY 1.2 CAL 1,000 ML BOTTLE GT SCH (17:29)
[2024-08-18] MEDS: PROSOURCE / PROSTAT (PYXIS) 30 ML UDC GT SCH (17:29)
[2024-08-18] MEDS: ENOXAPARIN SODIUM 40 MG/0.4 ML DISP.SYRIN SQ SCH (17:30)
[2024-08-18] MEDS: FREE WATER VIA TUBE FEEDING GT SCH (17:31)
[2024-08-18 20:00] VITALS: BP 108/71; TEMP 98; O2SAT 96
[2024-08-18] MEDS: LATANOPROST EYE DROP 0.005% 2.5 ML BOTTLE EACHEYE SCH (22:00)
[2024-08-18] MEDS ORDERED: Medication Not On Formulary EA (Melatonin 6 MG) GT SCH (22:00)
[2024-08-19 06:45] LABS: BASOPHILS % (AUTO) 0.3 % (0.0-2.0); EOSINOPHILS # (AUTO) 0.3 K/uL (0.0-0.7); EOSINOPHILS % (AUTO) 2.7 % (0.0-6.0); HEMATOCRIT 27 % (39-51); HEMOGLOBIN 8.6 g/dL (13.5-17.5); LYMPHOCYTES # (AUTO) 1.3 K/uL (0.8-4.8); LYMPHOCYTES % (AUTO) 11.4 % (20.0-44.0); MEAN CORPUSCULAR HEMOGLOBIN 28 PG (26.0-33.0); MEAN CORPUSCULAR HGB CONC 31 g/dl (31.0-36.0); MEAN CORPUSCULAR VOLUME 89 fL (80-96); MONOCYTES # (AUTO) 0.5 K/uL (0.1-1.30); MONOCYTES % (AUTO) 3.9 % (2.0-12.0); NEUTROPHILS # (AUTO) 9.6 K/uL (1.8-8.9); NEUTROPHILS % (AUTO) 81.7 % (43.0-81.0); PLATELET COUNT (AUTO) 382 K/uL (150-450); RED BLOOD CELL COUNT(AUTO) 3.06 MIL/uL (4.5-6.0); WHITE BLOOD COUNT (AUTO) 11.8 K/uL (4.3-11.0)
[2024-08-19 06:51] LABS: CREATININE 0.8 mg/dL (0.6-1.3); MAGNESIUM 2.1 mg/dL (1.8-2.4); PHOSPHORUS 3.5 mg/dL (2.5-4.9); POTASSIUM 4.5 mmol/L (3.5-5.1)
[2024-08-19 07:18] LABS: ALBUMIN 1.2 g/dL (3.4-5.0)
[2024-08-19 08:00] VITALS: BP_SYST 110; BP_SYST 95; BP_DIAS 56; BP_DIAS 74; TEMP 98.2; O2SAT 96
[2024-08-19] MEDS: PANTOPRAZOLE 40 MG TABLET.DR PO SCH (08:18)
[2024-08-19] MEDS: MULTIVITAMINS,THERAGRAN 1 UDTAB TABLET GT SCH (08:18)
[2024-08-19] MEDS: ZINC SULFATE 220 MG CAPSULE GT SCH (08:18)
[2024-08-19] MEDS: CALCIUM CARB 600MG /VIT D 1 EACH TABLET GT SCH (08:18)
[2024-08-19] MEDS: CYANOCOBALAMIN 500 MCG TABLET GT SCH (08:19)
[2024-08-19] MEDS: MAGNESIUM OXIDE 400 MG TABLET GT SCH (08:19)
[2024-08-19] MEDS: ASCORBIC ACID 500 MG TABLET GT SCH (08:19)
[2024-08-19] MEDS: DOCUSATE SODIUM LIQ 100 MG/10 ML UDC GT SCH (09:09)
[2024-08-19] MEDS ORDERED: ALBUMIN 25% 12.5 GM/50 ML BOTTLE IV ONE (09:30)
[2024-08-19] MEDS: ALBUMIN 5% 25 GM in PREMIX 1 EA IV ONE (10:29)
[2024-08-19 16:00] VITALS: BP 105/62; TEMP 97.7; O2SAT 96
[2024-08-19 20:00] VITALS: BP 96/50; TEMP 98.1; O2SAT 96
[2024-08-20 07:35] LABS: ALBUMIN 1.7 g/dL (3.4-5.0); CALCIUM, SERUM 8.9 mg/dL (8.5-10.1); CREATININE 0.8 mg/dL (0.6-1.3); POTASSIUM 4.1 mmol/L (3.5-5.1)
[2024-08-20 07:40] LABS: BASOPHILS % (AUTO) 0.4 % (0.0-2.0); EOSINOPHILS # (AUTO) 0.2 K/uL (0.0-0.7); EOSINOPHILS % (AUTO) 1.5 % (0.0-6.0); HEMATOCRIT 25 % (39-51); HEMOGLOBIN 8.1 g/dL (13.5-17.5); LYMPHOCYTES # (AUTO) 1.5 K/uL (0.8-4.8); LYMPHOCYTES % (AUTO) 14.4 % (20.0-44.0); MEAN CORPUSCULAR HEMOGLOBIN 28 PG (26.0-33.0); MEAN CORPUSCULAR HGB CONC 32 g/dl (31.0-36.0); MEAN CORPUSCULAR VOLUME 88 fL (80-96); MONOCYTES # (AUTO) 0.5 K/uL (0.1-1.30); MONOCYTES % (AUTO) 4.8 % (2.0-12.0); NEUTROPHILS # (AUTO) 8.1 K/uL (1.8-8.9); NEUTROPHILS % (AUTO) 78.9 % (43.0-81.0); PLATELET COUNT (AUTO) 389 K/uL (150-450); RED BLOOD CELL COUNT(AUTO) 2.87 MIL/uL (4.5-6.0); RED CELL DISTRIBUTION WIDTH 18.7 % (11.5-15.0); WHITE BLOOD COUNT (AUTO) 10.3 K/uL (4.3-11.0)
[2024-08-20 08:00] VITALS: BP 122/67; TEMP 97.2; O2SAT 98
[2024-08-20] MEDS ORDERED: Medication Not On Formulary EA (Omega-3/Dha/Epa/Fish Oil (Fish Oil 1,000 mg Softgel) 1,0 GT SCH (09:00)
[2024-08-20 16:00] VITALS: BP 101/53; TEMP 97.5; O2SAT 99
[2024-08-20 20:00] VITALS: BP 94/53; TEMP 98.1; O2SAT 97
[2024-08-21 07:14] LABS: BASOPHILS # (AUTO) 0.1 K/uL (0.0-0.2); BASOPHILS % (AUTO) 0.7 % (0.0-2.0); EOSINOPHILS # (AUTO) 0.2 K/uL (0.0-0.7); EOSINOPHILS % (AUTO) 1.7 % (0.0-6.0); HEMATOCRIT 26 % (39-51); HEMOGLOBIN 8.4 g/dL (13.5-17.5); LYMPHOCYTES # (AUTO) 1.9 K/uL (0.8-4.8); LYMPHOCYTES % (AUTO) 19.1 % (20.0-44.0); MEAN CORPUSCULAR HEMOGLOBIN 28 PG (26.0-33.0); MEAN CORPUSCULAR HGB CONC 32 g/dl (31.0-36.0); MEAN CORPUSCULAR VOLUME 88 fL (80-96); MONOCYTES # (AUTO) 0.7 K/uL (0.1-1.30); MONOCYTES % (AUTO) 7.1 % (2.0-12.0); NEUTROPHILS # (AUTO) 7.2 K/uL (1.8-8.9); NEUTROPHILS % (AUTO) 71.4 % (43.0-81.0); PLATELET COUNT (AUTO) 405 K/uL (150-450); RED BLOOD CELL COUNT(AUTO) 2.98 MIL/uL (4.5-6.0); RED CELL DISTRIBUTION WIDTH 18.4 % (11.5-15.0)
[2024-08-21 07:32] LABS: CALCIUM, SERUM 8.1 mg/dL (8.5-10.1); CREATININE 0.9 mg/dL (0.6-1.3)
[2024-08-21 08:00] VITALS: BP 126/79; TEMP 97.3; O2SAT 98
[2024-08-21 09:27] VITALS: BP 126/79
[2024-08-21] MEDS ORDERED: METR500T PO (12:33)
[2024-08-21] MEDS ORDERED: CEFT2VIA14 IV (12:33)
[2024-08-21] MEDS: THERAHONEY GEL 1.5 OZ TUBE TP SCH (12:45)
== END 2024-08-21 17:50 | DRG 299 ==
LOC: ER 08:50 → MED 16:19
PROVIDERS: ADMIT Nurse Practitioner Family; ATTEND Nurse Practitioner Family
DX: I73.9 Peripheral vascular disease, unspecified (principal); E43 Unspecified severe protein-calorie malnutrition; M86.8X7 Other osteomyelitis, ankle and foot; D68.59 Other primary thrombophilia; L03.116 Cellulitis of left lower limb; N17.9 Acute kidney failure, unspecified; E87.0 Hyperosmolality and hypernatremia; G93.49 Other encephalopathy; Z68.1 Body mass index [BMI] 19.9 or less, adult; E86.0 Dehydration; E78.5 Hyperlipidemia, unspecified; E88.09 Other disorders of plasma-protein metabolism, not elsewhere classified; F03.90 Unspecified dementia, unspecified severity, without behavioral disturbance, psychotic disturbance, mood disturbance, and anxiety; I10 Essential (primary) hypertension; K21.9 Gastro-esophageal reflux disease without esophagitis; M16.11 Unilateral primary osteoarthritis, right hip; Z93.1 Gastrostomy status; Z74.09 Other reduced mobility; Z91.81 History of falling; M24.574 Contracture, right foot; M24.575 Contracture, left foot
CPT/HCPCS: 36415; 71045-TC; 73630-TC; 80048-TC; 80076-TC; 82040-TC; 83605-TC; 83735-TC; 84100-TC; 85025-TC; 85730-TC; 87040-TC; 87081-TC; A4216; A4223; A6253; G0378; J0692; J0696; J1650; J3370; J7030; J7040; J7050; J7060; P9045; P9047